=== PATIENT | male | born 1955 | race Caucasian/White ===

== ENCOUNTER 2021-08-10 13:53 | Outpatient (CLI) | payer OTHER, SELFPAY ==
--- NOTE | 2021-08-10 | ECG_ITS ---
Measurements Intervals [place] Rate: 60 P: 35 KS: 205 QRS: 65 QRSD: 95 T: 76 QT: 399 QTc: 400 Interpretive Statements SINUS RHYTHM MINIMAL Q WAVES- INFERIOR LEADS BORDERLINE ST-T WAVE ABNORMALITY- LAT/HIGH LAT LEADS BORDERLINE ECG Electronically Signed On 08-10-2021 18:16:17 ZIPPER MACHINE OPERATOR by Danial Hatfield D.O.
[2021-08-10 14:34] LABS: Hematocrit 39.7 % (42.0-52.0); Hemoglobin 12.8 g/dL (14.0-18.0); Mean Corpuscular HGB Conc 32.2 g/dl (32-36); Mean Corpuscular Hemoglobin 28.4 pg (26-34); Mean Corpuscular Volume 88.2 fl (80-100); Mean Platelet Volume 9.8 fl (7.4-10.4); Platelet Count Result 210 k/mm3 (150-375); Red Cell Distribution Width 13.6 % (11.5-14.5); White Blood Count 4.9 K/mm3 (4.5-10.0)
[2021-08-10 14:44] LABS: Anion Gap 2 mmol/L (8-16); Blood Urea Nitrogen 15 mg/dL (9-20); Calcium 9.4 mg/dL (8.4-10.2); Carbon Dioxide 30 mmol/L (22-30); Chloride 104 mmol/L (98-107); Estimated Glomerular Filt Rate > 60; Glucose 129 mg/dL (65-110); Potassium 4.3 mmol/L (3.4-5.0); Sodium 136 mmol/L (137-145)
[2021-08-10 14:45] LABS: Hemoglobin A1C 6.4 % (<5.7)
== END 2021-08-10 13:54 | disposition home or self-care (01) ==
PROVIDERS: Visit Provider Surgery Plastic and Reconstructive Surgery
DX: Z01.818 Encounter for other preprocedural examination (principal)
CPT/HCPCS: 36415; 80048; 83036; 85027; 93005

== ENCOUNTER 2021-08-23 00:55 | Day surgery (SDC) | payer OTHER, SELFPAY ==
--- NOTE | 2021-08-18 15:16 | PC.NURSE ---
Report to the Outpatient Waiting Room, entrance under the green pavilion located off [facility], at time __0800 on date _08/23/21 . OR Time: __1000 . IF YOUR SURGERY TIME IS CHANGED, YOU WILL BE NOTIFIED ON Sunday08/22/21 AFTER NOON. - You and your visitor will be asked a series of questions to screen for COVID 19 for your protection. - A mask is required within the hospital. Preoperative COVID Testing Requirements: No COVID Test needed if: (proof is required; if not received patient will have Rapid Test prior to entry) - Patient has received COVID Vaccine at least 14 days prior to procedure date or - Patient has positive COVID test result within last 90 days of surgery date. COVID Test needed if above criteria is not met If not COVID vaccinated a COVID test must be conducted within 72 hours of surgery and patient is asked to isolate self from time of testing until procedure. You will go to the [employer] [facility] for your COVID testing. The [employer] [facility] Testing site is located at the corner of [address] [facility]. You will only be called if COVID results are positive and your surgeon may reschedule your elective surgery date. Patients may have clear liquids (water, carbonated beverages, clear teas, apple juice) until 3 hours prior to surgery with a maximum of 20 ounces. - No food from midnight until time of surgery - Infants may have breast milk until 4 hours before surgery, formula 6 hours prior to surgery. - Children will be allowed to drink immediately following surgery. If applicable, please bring a bottle or sippy cup to assist with drinking. Juice, water, soda, and popsicles are readily available. For infants on formula, please bring formula the day of surgery. Pacifiers are allowed. Take the following medications with a SIP of water the morning of surgery: __ALPRAZOLAM, ESCITALOPRAM Medications to discontinue per physician N/A Date to take last dose Please no make-up, nail armenian, hairspray, perfume, deodorant, or body powder the day of surgery. No jewelry (including any body piercings) or valuables the day of surgery, leave them at home. Please take a shower or bath the night before, or the morning of, surgery with an antibacterial soap. Wear comfortable, loose fitting clothing. Children are encouraged to wear pajamas. - Jewelry must be removed prior to entering the operating room. Rings and piercings that are not removed may be cut off. - The hospital will not accept responsibility for valuables. - Please leave all valuables, including medications, at home the day of surgery. If you are going home after surgery, a licensed full service vending driver must drive you home. - NO public transportation without another adult. - We recommend that an adult stay with you for 24 hours following discharge. - We also recommend that you do not drive, make important decision, drink alcoholic beverages, or take any drugs that were not prescribed by your health care provider for at least 24 hours after your discharge time. For Pediatric surgeries, we recommend two adults accompany the child home (only one inside the building at this time). One visitor will be allowed to accompany the patient into the hospital. Patients visitor will be instructed to remain with patient at all times or leave the building. We will allow the visitor to come back to the postoperative area when patient is ready. Follow any additional instructions given to you from your surgeon. Telephone instructions given to __DAXA and asked if any additional questions and then verbalized understanding. Patient advised to call surgeon office or pre surgery nurse liaison [phone] if any additional questions.
[2021-08-23] VITALS (11 sets, daily range): BP systolic 131–183; BP diastolic 52–94; PULSE 66–113; RESP 15–25; TEMP 35.9–36.7; O2SAT 95–100
[2021-08-23] MEDS: LACTATED RINGERS 1,000 ML 30 ML IV CONT ×3 (09:00→17:04)
[2021-08-23 09:29] LABS: Glucose Point of Care 121 mg/dl (65-105)
--- NOTE | 2021-08-23 09:39 | WPDHPUPDATE1 ---
History and Physical Update Update Date/Time: 08/23/21 09:39 History and Physical has been reviewed, including an updated exam of the patient. There are NO changes in the patient's condition. Risks, benefits, and alternatives have been discussed and questions answered. Patient agrees to proceed with procedure.
--- NOTE | 2021-08-23 09:50 | P.PNAN_ITS ---
Anes - Initial Pre Proc Eval Procedure: Operation Date: 08/23/21 10:00 Proposed Procedures p Face And Neck Lift, Facial Fat Graft - Marcus Russell MD s Upper Eyelid Blepharoplasty - Marcus Russell MD Date/Time: 08/23/21 09:50 Surgeon: Marcus Russell MD Pre Op Diagnosis: face skin laxity Patient Data Age: 66 Gender: M Height: 1.85 m Weight: 131.5 kg Allergies Allergy/AdvReac Type Severity Reaction Status Date / Time No Known Allergies Allergy Unverified 03/23/21 16:41 Home Medications Medication Instructions Recorded Confirmed Type albuterol sulfate 90 mcg/actuation 1 inh INHALATION Q4H PRN 03/23/21 08/18/21 History aerosol inhaler alprazolam 1 mg tablet 1 mg PO DAILY PRN 03/23/21 08/18/21 History atorvastatin [Lipitor] 10 mg PO DAILY 03/23/21 08/18/21 History escitalopram oxalate 20 mg tablet 20 mg PO DAILY 03/23/21 08/18/21 History famotidine 20 mg tablet 20 mg PO DAILY 03/23/21 08/18/21 History metformin 500 mg PO BIDWMEAL 03/23/21 08/18/21 History montelukast 10 mg tablet 10 mg PO DAILY 03/23/21 08/18/21 History tamsulosin 0.4 mg capsule 0.4 mg PO DAILY 03/23/21 08/18/21 History docusate sodium 100 mg capsule 100 mg PO DAILY #14 cap 08/11/21 08/18/21 Rx hydrocodone 5 mg-acetaminophen 325 1 tablet PO Q6H PRN #30 tablet 08/14/21 08/18/21 Rx mg tablet sildenafil [Viagra] 100 mg PO DAILY PRN 08/18/21 08/18/21 History Laboratory Tests 08/23/21 09:26 POC Capillary Glucose 121 mg/dl H mg/dl (65-105) Patient hx anesthesia problems: none Family hx anesthesia problems: none Results Review: All pre-operative results and documents have been reviewed as part of the pre-operative evaluation. [facility] Social History Social History Smoking packs per day: 1.5 Smoking cigarettes per day: 30.0 Years smoked: 37 Smoking pack-years: 55.50 Smoking status: Light tobacco smoker Tobacco type: e-cigarettes/vaping Smokeless tobacco user: dissolvable tobacco and other Alcohol intake: current Substance use: current Substance use type: other Other substance usage details: VAPES OCCAS. THC Last use: 2010 Living arrangements: with family Spiritual care concerns: No Anes - Eval Final PreProcedure Day of Procedure 08/23/21 09:50 Patient weight: obese Heart: regular rate and rhythm Lungs: decreased breath sounds Airway: Mallampati scale class II Neurological: alert and oriented Last oral intake: >/= 8 hours ASA classification: III Emergent: no Anesthetic plan: proceed Anesthesia type and monitoring: general ETT and standard monitoring Results Review: All pre-operative results and documents have been reviewed as part of the pre-operative evaluation. Informed Consent: The patient's anesthetic plan and its attendant risks and benefits were discussed with the patient/family/POA. Questions were solicited and answers provided to the satisfaction of the patient/family/POA.
--- NOTE | 2021-08-23 09:51 | P.PNAN_ITS ---
Anes - Initial Pre Proc Eval Procedure: Operation Date: 08/23/21 10:00 Proposed Procedures p Face And Neck Lift, Facial Fat Graft - Marcus Russell MD s Upper Eyelid Blepharoplasty - Marcus Russell MD Date/Time: 08/23/21 09:51 Surgeon: Marcus Russell MD Pre Op Diagnosis: face skin laxity Patient Data Age: 66 Gender: M Height: 1.85 m Weight: 131.5 kg Allergies Allergy/AdvReac Type Severity Reaction Status Date / Time No Known Allergies Allergy Unverified 03/23/21 16:41 Home Medications Medication Instructions Recorded Confirmed Type albuterol sulfate 90 mcg/actuation 1 inh INHALATION Q4H PRN 03/23/21 08/18/21 History aerosol inhaler alprazolam 1 mg tablet 1 mg PO DAILY PRN 03/23/21 08/18/21 History atorvastatin [Lipitor] 10 mg PO DAILY 03/23/21 08/18/21 History escitalopram oxalate 20 mg tablet 20 mg PO DAILY 03/23/21 08/18/21 History famotidine 20 mg tablet 20 mg PO DAILY 03/23/21 08/18/21 History metformin 500 mg PO BIDWMEAL 03/23/21 08/18/21 History montelukast 10 mg tablet 10 mg PO DAILY 03/23/21 08/18/21 History tamsulosin 0.4 mg capsule 0.4 mg PO DAILY 03/23/21 08/18/21 History docusate sodium 100 mg capsule 100 mg PO DAILY #14 cap 08/11/21 08/18/21 Rx hydrocodone 5 mg-acetaminophen 325 1 tablet PO Q6H PRN #30 tablet 08/14/21 08/18/21 Rx mg tablet sildenafil [Viagra] 100 mg PO DAILY PRN 08/18/21 08/18/21 History Laboratory Tests 08/23/21 09:26 POC Capillary Glucose 121 mg/dl H mg/dl (65-105) Patient hx anesthesia problems: none Family hx anesthesia problems: none Results Review: All pre-operative results and documents have been reviewed as part of the pre-operative evaluation. [facility] Past Medical History Medical History Chronic bronchitis CPAP (continuous positive airway pressure) dependence Diabetes Hyperlipidemia Hypertension Prostate cancer Social History Social History Smoking packs per day: 1.5 Smoking cigarettes per day: 30.0 Years smoked: 37 Smoking pack-years: 55.50 Smoking status: Light tobacco smoker Tobacco type: e-cigarettes/vaping Smokeless tobacco user: dissolvable tobacco and other Alcohol intake: current Substance use: current Substance use type: other Other substance usage details: VAPES OCCAS. THC Last use: 2010 Living arrangements: with family Spiritual care concerns: No Anes - Eval Final PreProcedure Day of Procedure 08/23/21 09:51 Patient weight: obese Heart: regular rate and rhythm Lungs: decreased breath sounds Airway: Mallampati scale class II Neurological: alert and oriented Last oral intake: >/= 8 hours ASA classification: III Emergent: no Anesthetic plan: proceed Anesthesia type and monitoring: general ETT and standard monitoring Results Review: All pre-operative results and documents have been reviewed as part of the pre-operative evaluation. Informed Consent: The patient's anesthetic plan and its attendant risks and benefits were discussed with the patient/family/POA. Questions were solicited and answers provided to the satisfaction of the patient/family/POA.
[2021-08-23] MEDS: TRANEXAMIC ACID 1,000MG/ISO100 1,000 MG/100 ML BAG 200 MG IVPB (10:00)
[2021-08-23 10:04] LABS: Urine Cotinine NEGATIVE
--- NOTE | 2021-08-23 10:13 | W.PM.PROC2 ---
Procedure Note - Detailed Date of Procedure 08/23/21 Pre-op Diagnosis face skin laxity Post-op Diagnosis same Procedure Performed 1. Bilateral upper eyelid blepharoplasty 2. Facial fat grafting 3. Face / Neck Lift Surgeon Marcus Russell MD Anesthesia general Findings Fat grafting Bilateral tear trough 3cc per side (6cc total) Bilateral nasolabial fold 2cc per side (4cc total) Bilateral faith 2cc per side (4cc total) Description of Procedure Preoperatively the risks, benefits, alternatives were discussed in extensive detail. I want him and his daughter to be very realistic about the risks involved as well as expectations. We did try on his CPAP machine to see how this would affect him in the recovery process. He understands the critical importance of no nicotine following procedure. All questions were answered to his understanding. They are of able to voice a clear understanding. Consent obtained. He was marked in the preoperative holding area with his verification. For the eyes I marked along the tarsal crease as well as did a pinch test to rule out any risk of lagophthalmos. He was taken to the operating room placed supine on the operating room table. Anesthesia provided by anesthesiology and prepped and draped in a standard sterile fashion. Surgical time-out was taken. Thorough abdominal examination was completed. He did have an umbilical / supraumbilical hernia which was avoided. Stab incision was made and I tumesced with a small volume of tumescent solution. I then proceeded with face and neck in tumesced with additional tumescent solution. I then proceeded to the abdomen. Using 1.2 mm cannula on hand suction using a 10 cc syringe I completed lipoaspirate of this and allowed this to separate by gravity separation on the back table. I proceeded with fat grafting. I infiltrated with low volume 1% lidocaine with epi and gave adequate time for hemostasis effect. Injected volumes as described in findings above using a 0.7 mm cannula. The fat had been prepared to be micro fat by passing through lure lock adapter. This was there an 18 gauge stab incision. I also utilized a v dissector at the nasolabial fold. During the procedure I placed a temporary tarsorrhaphy with 5 0 nylon. 1% lidocaine and 0.25% Marcaine with epinephrine was used to anesthetize for the upper eyelid blepharoplasty. I incised the skin flap which was removed. Open the medial and middle compartments removing only what was necessary adipose tissue. I closed with running subcuticular 5 0 Prolene which was brought out 3 Thatch. That was held with benzoin and Steri-Strips on each end. Next proceeded with the neck. Submental incision was made and I can used a spatula did 1.2 mm suction cannula in order to improve the contour of the neck prior to proceeding. I then continued dissection elevating with well-vascularized skin flaps along the neck and identifying the platysma muscle. The platysma muscle and a small volume of sub platysmal adipose tissue was resected making sure had a good contour. I imbricated the platysma muscle using multiple layers of 2-0 Vicryl. Fifteen blade used to make an incision for the remainder of the face lift incisions. I elevated just superficial to the SMAS just as necessary in order to provide good exposure. I did SMAS plication multiple layers using 2-0 Vicryl. I also did a platysmal window 2 cm inferior lateral to the mandibular angled sutured to the mastoid fascia a with 2-0 Vicryl as well. Drains were placed which came out postauricular through the hairline using 10 Juan Miguel drains bilateral. These were sutured into place with 3-0 Vicryl. I verified full release and improved contour. I then proceeded with closure. Submental was closed using 3-0 Monocryl followed by running subcuticular 4-0 Monocryl and Steri-Strips. The face-lift incisions were closed in the hairline with gela. Preauricular with 5 0 nylon and
[2021-08-23] MEDS: ceFAZolin 3 GM/D5W 100 ML 100 ML IVPB (10:25)
[2021-08-23] MEDS: BUPIVACAINE HCL 0.25% PF 30 ML VIAL INFILTRATE (11:35)
[2021-08-23] MEDS: ceFAZolin SODIUM 1 GM VIAL IV PUSH (14:34)
[2021-08-23] MEDS: ONDANSETRON INJ 4 MG/2 ML VIAL IV PUSH (16:46)
--- NOTE | 2021-08-23 16:47 | SUR.PHASEI ---
[address] gibbs about madelyn drain from right side of head ,unable to maintain suction. left sided madelyn drain maintaining suction so all is okay.,
[2021-08-23] MEDS: fentaNYL CITRATE INJ (*CRX) 100 MCG/2 ML VIAL 25 MCG IV PUSH ×8 (16:57→17:58)
[2021-08-23 17:06] LABS: Glucose Point of Care 146 mg/dl (65-105)
[2021-08-23] MEDS: HYDROmorphone HCL INJ (*CRX) 1 MG/ML SYR 0.25 MG IV PUSH ×4 (17:32→17:49)
--- NOTE | 2021-08-23 19:23 | ADMGEN ---
This patient, Delvin Segovia, was admitted to Medical Room 341-01. Patient/family oriented to hospital policies and general routines including ID bracelet, bed and alarms, visiting hours, pain management, procedures, bathroom and other care routines, personal items, smoking policy, room service/diet, and visiting hours. Information on how to activate the Rapid Response Team has been discussed. Patient/Family are encouraged to report perceived risks to care and to ask questions if they do not understand what they are told or what they should do.
[2021-08-23] MEDS: LACTATED RINGERS 1,000 ML 125 ML IV CONT (19:28)
[2021-08-23] MEDS: metFORMIN HCL 500 MG TABLET PO (19:28)
[2021-08-23 20:04] LABS: Glucose Point of Care 161 mg/dl (65-105)
[2021-08-23] MEDS: DOCUSATE SODIUM 100 MG CAPSULE PO (20:06)
[2021-08-23] MEDS: ENOXAPARIN 40 MG/0.4 ML SYRINGE SUB-Q (20:06)
[2021-08-23] MEDS: oxyCODONE/ACETAMINOPHEN (*CRX) 5-325 MG TABLET PO (20:10)
[2021-08-24 06:14] VITALS: BP 135/69; PULSE 83; RESP 17; TEMP 36; O2SAT 99
--- NOTE | 2021-08-24 06:43 | WPDPN ---
Progress Note: A&P Assessment and Plan (1) Encounter for cosmetic surgery: Code(s): Z41.1 - Encounter for cosmetic surgery Status: Acute Assessment and Plan: Doing very well after bilateral upper lid blepharoplasty, facial fat grafting, neck/face lift. Will discharge home. Follow-up. Call with any questions or concerns. Today we had a lengthy discussion about the care. What to monitor for. What is an emergency. Answered all of his questions to his satisfaction. We will see him back. (2) Current nicotine use: Code(s): Z72.0 - Tobacco use Status: Acute Subjective Date/time seen: 08/24/21 06:35 Overnight he has done very well. No f/c. No n/v. No SOB. No CP. Normal gross vision. Able to close his eyes. Review of Systems Review of Systems: All systems reviewed & are unremarkable except as noted in HPI and below Exam Narrative: A&O NOD Facial nerve intact in all distributions. No lagophthalmos. No hematoma. No seroma. Good color / cap refill. Resp unlabored Abdomen soft. No calf tenderness. Negative Homann's Objective Data Vital Signs Vital Signs: Vital Signs - 24 hr 08/23/21 09:10 08/23/21 16:15 08/23/21 16:22 Temperature 36.7 C 36.5 C Pulse Rate 66 99 113 H Respiratory Rate 18 21 H 24 H Blood Pressure 150/77 H 131/82 136/63 Pulse Oximetry 100 98 98 08/23/21 16:30 08/23/21 16:45 08/23/21 17:00 Temperature Pulse Rate 98 98 94 Respiratory Rate 16 25 H 19 Blood Pressure 172/78 H 176/80 H 176/72 H Pulse Oximetry 97 95 99 08/23/21 17:15 08/23/21 17:30 08/23/21 17:45 Temperature Pulse Rate 91 87 88 Respiratory Rate 15 18 17 Blood Pressure 183/79 H 174/93 H 173/94 H Pulse Oximetry 97 99 99 08/23/21 18:40 08/23/21 23:55 08/24/21 06:14 Temperature 36.6 C 35.9 C L 36.0 C L Pulse Rate 100 85 83 Respiratory Rate 18 18 17 Blood Pressure 159/52 H 148/68 H 135/69 Pulse Oximetry 99 95 99 Intake/Output Intake/Output: Intake & Output 08/21/21 08/22/21 08/23/21 08/24/21 23:59 23:59 23:59 23:59 Intake Total 1000 340 Output Total 65 400 Balance 935 -60 Meds/Results Medications: Active Medications Generic Name Dose Route Start Last Admin Trade Name Freq PRN Reason Stop Dose Admin Albuterol 1 puff 08/23/21 18:14 Albuterol Sulfate (*Sp) Aerosol 1 Puff INHALATION Q4HRT PRN Shortness Of Breath Atorvastatin Calcium 10 mg 08/24/21 09:00 Atorvastatin 10 Mg Tablet PO 09/23/21 08:59 DAILY TAM Diazepam 5 mg 08/23/21 16:02 Diazepam (*Crx) 5 Mg Tablet PO TID PRN Anxiety Docusate Sodium 100 mg 08/23/21 21:00 08/23/21 20:06 Docusate Sodium 100 Mg Capsule PO 100 mg Q12HR TAM Administration Enoxaparin Sodium 40 mg 08/23/21 23:00 08/23/21 20:06 Enoxaparin 40 Mg/0.4 Ml Syringe SUB-Q 40 mg HS TAM Administration Escitalopram Oxalate 20 mg 08/24/21 09:00 Escitalopram Oxalate 10 Mg Tablet PO DAILY TAM Famotidine 20 mg 08/24/21 09:00 Famotidine 20 Mg Tablet PO DAILY TAM Lactated Ringer's 1,000 mls @ 125 mls/hr 08/23/21 16:05 08/23/21 19:28 Lr - Lactated Ringers Iv IV CONT 125 mls/hr .Q8H TAM Administration Metformin HCl 500 mg 08/23/21 18:14 08/23/21 19:28 Metformin Hcl 500 Mg Tablet PO 500 mg BIDWM TAM Administration Montelukast Sodium 10 mg 08/24/21 09:00 Montelukast Sodium 10 Mg Tablet PO DAILY TAM Morphine Sulfate 2 mg 08/23/21 16:02 Morphine Sulfate (*Crx) 2 Mg/Ml Inj IV PUSH Q2H PRN Pain Ondansetron HCl 4 mg 08/23/21 16:02 Ondansetron Inj 4 Mg/2 Ml Vial IV PUSH Q6H PRN Nausea Oxycodone/Acetaminophen 1 - 2 tablet 08/23/21 16:02 08/23/21 20:10 Oxycodone/Acetaminophen (*Crx) 5-325 Mg Tablet PO 1 tablet Q6H PRN Administration Pain Tamsulosin HCl 0.4 mg 08/24/21 09:00 Tamsulosin Hcl 0.4 Mg Capsule PO DAILY TAM Labs Labs: Laboratory Results - last 24 h
--- NOTE | 2021-08-24 06:51 | P.DS_ITS ---
DS: Admitting Diagnosis Discharge Date 08/24/2021 Admitting Diagnosis Encounter cosmetic surgery DS: Discharge Diagnosis Discharge Diagnosis (1) Encounter for cosmetic surgery: Code(s): Z41.1 - Encounter for cosmetic surgery Status: Acute (2) Current nicotine use: Code(s): Z72.0 - Tobacco use Status: Acute DS: Summary Hospital Course Hospital Course: Underwent bilateral blepharoplasty, facial fat grafting, face/neck lift. Doing well. Will discharge home. Time Spent with Patient Time attestation: Total time spent providing and/or coordinating discharge services: Exam Narrative: A&O NOD Facial nerve intact in all distributions. No lagophthalmos. No hematoma. No seroma. Good color / cap refill. Resp unlabored Abdomen soft. No calf tenderness. Negative Homann's DS: Data Data Completed and Pending Labs on day of discharge: Labs from last 24 hours 08/23/21 08/23/21 08/23/21 19:47 17:02 09:48 POC Capillary Glucose 161 H 146 H Cotinine Negative 08/23/21 09:26 POC Capillary Glucose 121 H Cotinine Discharge Plan Discharge Patient Disposition: Home, Self-Care Discharge Instructions: POST OPERATIVE DISCHARGE INSTRUCTIONS MARCUS RUSSELL M.D. [facility] [id number] [place] [address] * No driving for 24 hours after anesthesia and while you are taking pain medication. * Take all prescribed medication as directed * Diet as tolerated. * No lifting or activity that raises blood pressure for 48 hours. * Regular walking / ambulation. * No showering until directed to. Once you shower do not take pain medication before showering as the combination of medication and heat may cause you to feel dizzy or pass out. * No pools or tubs for 2 weeks. * Call with any questions or concerns. * Continue face lift wrap. * Dressing Care: May shower. * No nicotine / vaping If you have any questions or concerns, please call the office . If it is after hours you will be directed to the allied health professional exchange. Shortness of breath, chest pain, or other medical emergency dial 911 / proceed to the Emergency Room. Patient Instructions: [place] [facility] Care (GEN) Stand Alone Forms: General Discharge Instructions Follow-up/Referrals: Marcus Russell MD [Physician] - 1 Week Discharge Medications: Continued docusate sodium [Colace] 100 mg capsule 100 mg PO DAILY Qty: 14 RF: 0 hydrocodone-acetaminophen 5-325 mg tablet 1 tablet PO Q6H PRN (Reason: pain) Qty: 30 RF: 0 albuterol sulfate 90 mcg/actuation HFA aerosol inhaler 1 inh inhalation Q4H PRN (Reason: SOB) RF: 0 alprazolam [Xanax] 1 mg tablet 1 mg PO DAILY PRN (Reason: Anxiety) RF: 0 metformin 500 mg PO BIDWMEAL RF: 0 escitalopram oxalate [Lexapro] 20 mg tablet 20 mg PO DAILY RF: 0 tamsulosin 0.4 mg capsule 0.4 mg PO DAILY RF: 0 montelukast 10 mg tablet 10 mg PO DAILY RF: 0 atorvastatin [Lipitor] 10 mg PO DAILY RF: 0 famotidine 20 mg tablet 20 mg PO DAILY RF: 0 sildenafil [Viagra] 100 mg Tablet 100 mg PO DAILY PRN (Reason: Sexual Activity) RF: 0
[2021-08-24 07:49] LABS: Glucose Point of Care 105 mg/dl (65-105)
[2021-08-24] MEDS: ATORVASTATIN 10 MG TABLET PO (08:00)
[2021-08-24] MEDS: FAMOTIDINE 20 MG TABLET PO (08:00)
[2021-08-24] MEDS: metFORMIN HCL 500 MG TABLET PO (08:00)
[2021-08-24] MEDS: TAMSULOSIN HCL 0.4 MG CAPSULE PO (08:00)
[2021-08-24] MEDS: MONTELUKAST SODIUM 10 MG TABLET PO (08:00)
[2021-08-24] MEDS: DOCUSATE SODIUM 100 MG CAPSULE PO (08:00)
[2021-08-24] MEDS: ESCITALOPRAM OXALATE 10 MG TABLET 20 MG PO (08:00)
[2021-08-24] MEDS: oxyCODONE/ACETAMINOPHEN (*CRX) 5-325 MG TABLET PO (08:03)
[2021-08-24 11:41] LABS: Glucose Point of Care 121 mg/dl (65-105)
== END 2021-08-24 13:10 | disposition home or self-care (01) ==
LOC: ANHSURGERY 08:33 → ANH3MED 18:08
PROVIDERS: Visit Provider Surgery Plastic and Reconstructive Surgery
PROC: (CPT 15824; principal; 2021-08-23 10:00)
PROC: (CPT 15822; 2021-08-23 10:00)
DX: Z41.1 Encounter for cosmetic surgery (principal); L57.4 Cutis laxa senilis; F17.290 Nicotine dependence, other tobacco product, uncomplicated; E66.9 Obesity, unspecified; Z68.39 Body mass index [BMI] 39.0-39.9, adult; Z79.51 Long term (current) use of inhaled steroids; Z79.84 Long term (current) use of oral hypoglycemic drugs; Z79.899 Other long term (current) drug therapy
CPT/HCPCS: 15822; 15773; 15825; 15829; 80307; 82948; A9270; J0171; J0330; J0690; J1170; J1650; J2250; J2405; J2704; J3010; J7030; J7120; Q9968